=== PATIENT | male | born 1960 | race Caucasian/White ===

== ENCOUNTER → 2020-07-08 | Day surgery (SDC) | payer BC ==
[2020-07-04 11:44] VITALS: BMI 27.1
[~2020-07-08] MED LIST: LACTATED RINGERS 1,000 ML IV SCH; LIDOCAINE 1% (10MG/ML) FOR IV START INTRADERMA ONE; PROPOFOL 10 MG/ML 20 ML VIAL IV ONE
[2020-07-08 09:00] VITALS: TEMP 97.1
--- NOTE | 2020-07-08 09:38 | P.GSHP ---
History of Present Illness H&P Date: 07/08/20 Chief Complaint: Colon cancer screening 60-year-old male who has history of polyps. Last colonoscopy 4.5 years ago. No bowel complaints. Family history of colon cancer in his grandfather. Past Medical History Past Medical History: Hyperlipidemia, Sleep Apnea/CPAP/BIPAP Additional Past Medical History / Comment(s): hx of colon polyps History of Any Multi-Drug Resistant Organisms: None Reported Past Surgical History: Heart Catheterization Additional Past Surgical History / Comment(s): colonoscopy Past Anesthesia/Blood Transfusion Reactions: No Reported Reaction Past Psychological History: No Psychological Hx Reported Smoking Status: Never smoker Past Alcohol Use History: Occasional Past Drug Use History: None Reported Medications and Allergies Home Medications Medication Instructions Recorded Confirmed Type Simvastatin 40 mg PO DAILY 07/04/20 07/04/20 History Allergies Allergy/AdvReac Type Severity Reaction Status Date / Time iodine Allergy Swelling Verified 07/04/20 11:49 shellfish derived [Shellfish] Allergy Swelling/ra Verified 07/04/20 11:49 sh Surgical - Exam Vital Signs Temp Pulse Resp BP Pulse Ox 97.1 F L 73 20 116/80 95 07/08/20 08:58 07/08/20 08:58 07/08/20 08:58 07/08/20 08:58 07/08/20 08:58 Physical exam: General: Well-developed, well-nourished HEENT: Normocephalic, sclerae nonicteric Abdomen: Nontender, nondistended Extremities: No edema Neuro: Alert and oriented Assessment and Plan (1) Personal history of colonic polyps Narrative/Plan: Will proceed with colonoscopy at this time Current Visit: Yes Status: Acute Code(s): Z86.010 - PERSONAL HISTORY OF COLONIC POLYPS SNOMED Code(s): 257197368
--- NOTE | 2020-07-08 09:54 | P.PCN ---
Date of Procedure: 07/08/20 Procedure(s) Performed: PREOPERATIVE DIAGNOSIS: History of colon polyps POSTOPERATIVE DIAGNOSIS: Cecal polyp, transverse colon polyp PROCEDURE: Colonoscopy with snare polypectomy and cold biopsy ANESTHESIA: MAC SURGEON: Flavio Perry M.D. SPECIMENS: Polyps ENDOSCOPIC PROCEDURE: The patient was placed on the endoscopy table in the left decubitus position. The Olympus colonoscope was inserted into the anus and passed under direct visualization to the base of the cecum. The appendiceal orifice was visualized. From that point the scope was slowly withdrawn inspecting all surfaces carefully. At the base of the cecum a small polyp was seen and removed using the cold biopsy forceps. The remainder of the cecum and ascending colon appear normal. In the transverse colon another small polyp was seen removed using the snare with cautery technique. The remainder of the transverse descending sigmoid and rectum appeared normal. There was no visible diverticulosis. The patient did have some scattered AVMs throughout the colon. No evidence of recent or active bleeding. Digital rectal examination was normal. The patient was taken to the recovery room in stable condition per anesthesia guidelines. RECOMMENDATIONS: Await biopsy results. Possible follow-up colonoscopy 5 years.
[2020-07-08 09:58] VITALS: RESP 16
[2020-07-08 10:16] VITALS: BP 125/79; PULSE 54
== END ==
LOC: ORWHC2ENDO 08:26
PROVIDERS: ATTEND Surgery
DX: Z12.11 Encounter for screening for malignant neoplasm of colon (principal); D12.0 Benign neoplasm of cecum; K63.5 Polyp of colon; Z86.010 Personal history of colon polyps; Z80.0 Family history of malignant neoplasm of digestive organs; Q27.39 Arteriovenous malformation, other site; E78.5 Hyperlipidemia, unspecified; G47.30 Sleep apnea, unspecified; Z98.890 Other specified postprocedural states; Z79.899 Other long term (current) drug therapy; Z91.013 Allergy to seafood; Z91.048 Other nonmedicinal substance allergy status
CPT/HCPCS: 88305; 45380; 45385; J2704